=== PATIENT | female | born 1970 | race Caucasian/White ===

== ENCOUNTER 2017-11-04 10:12 | Inpatient (IN) | payer OTHER ==
[~2017-11-04] VITALS: Ht 154.9 cm; Wt 90.8 kg
[2017-11-04] MEDS ORDERED: LEVO100T5 PO (10:51)
[2017-11-04] MEDS ORDERED: SODIUM CHLORIDE FLUSH 10ML SYR IVF ONE (12:00)
[2017-11-04] MEDS ORDERED: CEFTRIAXONE PMX 1GM/50ML 50 ML IVPB ONE (12:00)
[2017-11-04] MEDS ORDERED: MORPHINE SULFATE 4 MG/ML, 1ML IVPush PRN (12:00)
[2017-11-04] MEDS ORDERED: VANCOMYCIN PER PHARMACY MC ONE (12:00)
[2017-11-04 12:03] LABS: BASOPHILS # (AUTO) 0.02 x10^3/uL (0-0.1); BASOPHILS % (AUTO) 0 % (0-1); EOSINOPHILS # (AUTO) 0.19 x10^3/uL (0-0.4); EOSINOPHILS % (AUTO) 2 % (1-7); LYMPHOCYTES # (AUTO) 1.72 x10^3/uL (1-3.4); LYMPHOCYTES % (AUTO) 19 % (22-44); MD NO; MEAN CORPUSCULAR HEMOGLOBIN 31.2 pg (27.0-34.8); MEAN CORPUSCULAR HGB CONC 34.5 g/dL (32.4-35.8); MEAN CORPUSCULAR VOLUME 90.4 fL (80-100); MEAN PLATELET VOLUME 7.5 fL (7.4-10.4); MONOCYTES % (AUTO) 9 % (2-9); NEUTROPHILS # (AUTO) 6.52 x10^3/uL (1.8-6.8); NEUTROPHILS % (AUTO) 70 % (42-75); PLATELET COUNT 339 x10^3/uL (130-400); RED BLOOD COUNT 4.99 x10^6/uL (3.82-5.3); RED CELL DISTRIBUTION WIDTH 13.6 % (9.6-15.2)
[2017-11-04] MEDS ORDERED: LEVO50TA5 PO (12:09)
[2017-11-04] MEDS ORDERED: SUMA100T3 PO (12:10)
[2017-11-04 12:15] LABS: ALANINE AMINOTRANSFERASE 26 U/L (12-78); ALBUMIN 4.5 g/dL (3.4-5.0); ANION GAP 7 mmol/L (5-15); CALCIUM 9.4 mg/dL (8.5-10.1); CHLORIDE 106 mmol/L (98-107)
[2017-11-04 12:17] LABS: ALKALINE PHOSPHATASE 84 U/L (45-117); BILIRUBIN,TOTAL 0.6 mg/dL (0.2-1.0); TOTAL PROTEIN 8.1 g/dL (6.4-8.2)
[2017-11-04] MEDS ORDERED: MORPHINE SULFATE 4 MG/ML, 1ML ONE (12:21)
[2017-11-04] MEDS ORDERED: CEFTRIAXONE 2 GM in DEXTROSE 5% 50 ML IV SCH (12:30)
[2017-11-04] MEDS ORDERED: LIDOCAINE 2%, 10ML INFIL ONE (12:30)
[2017-11-04] MEDS ORDERED: POLYETHYLENE GLYCOL 17 GM PACKET PO PRN (12:30)
[2017-11-04] MEDS ORDERED: VANCOMYCIN 1,300 MG in SODIUM CHLORIDE 0.9% 250 ML IV ONE (12:30)
[2017-11-04] MEDS ORDERED: VANCOMYCIN PER PHARMACY MC PRN (12:30)
[2017-11-04] MEDS ORDERED: LABETALOL 5MG/ML, 20ML IVPush PRN (12:30)
[2017-11-04] MEDS ORDERED: ONDANSETRON ODT 4 MG PO PRN (12:30)
[2017-11-04 12:41] LABS: INTERNATIONAL NORMALIZED RATIO 0.95 (0.93-1.1); PROTHROMBIN TIME 9.9 Seconds (9.6-11.5)
[2017-11-04] MEDS ORDERED: LIDOCAINE-MPF 1%, 5ML ONE (13:01)
[2017-11-04 14:14] VITALS: BP 127/76
[2017-11-04] MEDS ORDERED: OMNIPAQUE 350 MG/ML, 75ML BOTTLE ONE (14:22)
[2017-11-04] MEDS: METRONIDAZOLE PMX 500MG/100ML 100 ML IV SCH ×2 (15:03→21:01)
[2017-11-04] MEDS: SODIUM CHLORIDE 0.9% 1,000 ML IV SCH (15:06)
[2017-11-04] MEDS ORDERED: PHARMACOKINETIC MONITORING MC PRN (15:30)
[2017-11-04] MEDS: DEXAMETHASONE 4 MG/ML, 1ML IVPush SCH ×2 (16:41→21:01)
[2017-11-04] MEDS: CEFTRIAXONE 2 GM in DEXTROSE 5% 50 ML IV SCH (16:42)
[2017-11-04] MEDS: ENOXAPARIN 40 MG/0.4 ML SQ SCH (16:42)
[2017-11-04] MEDS ORDERED: PNEUMOCOCCAL 23 VACCINE IM-VACC ONE (18:30)
[2017-11-04] MEDS ORDERED: FLU VACC QS2017-18 (36MOS+) UP/PF 0.5 ML IM-VACC ONE (18:30)
[2017-11-04 19:23] VITALS: BP 99/59
[2017-11-04] MEDS: HYDROcodone/APAP 5/325 TABLET PO PRN (21:01)
[2017-11-05] MEDS ORDERED: VANCOMYCIN 1,600 MG in SODIUM CHLORIDE 0.9% 250 ML IV SCH
[2017-11-05] MEDS: SODIUM CHLORIDE 0.9% 1,000 ML IV SCH ×3 (01:23→15:07)
[2017-11-05 01:30] VITALS: BP 112/65
[2017-11-05] MEDS: METRONIDAZOLE PMX 500MG/100ML 100 ML IV SCH ×4 (03:09→20:55)
[2017-11-05 05:29] LABS: BASOPHILS % (AUTO) 0 % (0-1); EOSINOPHILS % (AUTO) 0 % (1-7); LYMPHOCYTES # (AUTO) 0.92 x10^3/uL (1-3.4); LYMPHOCYTES % (AUTO) 8 % (22-44); MD NO; MEAN CORPUSCULAR HEMOGLOBIN 30.9 pg (27.0-34.8); MEAN CORPUSCULAR HGB CONC 34.4 g/dL (32.4-35.8); MEAN CORPUSCULAR VOLUME 89.7 fL (80-100); MEAN PLATELET VOLUME 7.8 fL (7.4-10.4); MONOCYTES # (AUTO) 0.17 x10^3/uL (0.2-0.8); MONOCYTES % (AUTO) 2 % (2-9); NEUTROPHILS # (AUTO) 9.88 x10^3/uL (1.8-6.8); NEUTROPHILS % (AUTO) 90 % (42-75); PLATELET COUNT 305 x10^3/uL (130-400); RED BLOOD COUNT 4.44 x10^6/uL (3.82-5.3); RED CELL DISTRIBUTION WIDTH 13.2 % (9.6-15.2)
[2017-11-05 05:36] LABS: CHLORIDE 107 mmol/L (98-107)
[2017-11-05 05:43] LABS: ALANINE AMINOTRANSFERASE 23 U/L (12-78); ALBUMIN 3.4 g/dL (3.4-5.0); ALKALINE PHOSPHATASE 69 U/L (45-117); ANION GAP 8 mmol/L (5-15); BILIRUBIN,TOTAL 0.5 mg/dL (0.2-1.0); CALCIUM 8.6 mg/dL (8.5-10.1); CREATININE 0.57 mg/dL (0.55-1.02)
[2017-11-05 06:47] VITALS: BP 110/67
[2017-11-05] MEDS: HYDROcodone/APAP 5/325 TABLET PO PRN ×2 (08:39→20:55)
[2017-11-05] MEDS: SENNA/DOCUSATE TABLET PO SCH (09:00)
[2017-11-05] MEDS: LEVOTHYROXINE 50 MCG TABLET PO SCH (09:10)
[2017-11-05] MEDS: DEXAMETHASONE 4 MG/ML, 1ML IVPush SCH ×3 (09:10→20:55)
[2017-11-05] MEDS ORDERED: VANCOMYCIN 1,300 MG in SODIUM CHLORIDE 0.9% 250 ML IV SCH (12:00)
[2017-11-05] MEDS: VANCOMYCIN 1,600 MG in SODIUM CHLORIDE 0.9% 250 ML IV SCH (12:52)
[2017-11-05 13:03] VITALS: BP 121/70
[2017-11-05] MEDS: CEFTRIAXONE 2 GM in DEXTROSE 5% 50 ML IV SCH (16:14)
[2017-11-05] MEDS: ENOXAPARIN 40 MG/0.4 ML SQ SCH (16:16)
[2017-11-05 19:22] VITALS: BP 124/73
[2017-11-06] MEDS: VANCOMYCIN 1,600 MG in SODIUM CHLORIDE 0.9% 250 ML IV SCH ×2 (00:51→13:33)
[2017-11-06 01:43] VITALS: BP 109/58
[2017-11-06] MEDS: METRONIDAZOLE PMX 500MG/100ML 100 ML IV SCH ×4 (03:00→21:10)
[2017-11-06 04:55] LABS: MEAN CORPUSCULAR HEMOGLOBIN 30.6 pg (27.0-34.8); MEAN CORPUSCULAR HGB CONC 33.6 g/dL (32.4-35.8); MEAN CORPUSCULAR VOLUME 91.2 fL (80-100); MEAN PLATELET VOLUME 7.9 fL (7.4-10.4); PLATELET COUNT 315 x10^3/uL (130-400); RED BLOOD COUNT 4.27 x10^6/uL (3.82-5.3); RED CELL DISTRIBUTION WIDTH 13.9 % (9.6-15.2)
[2017-11-06 05:02] LABS: ALBUMIN 3.1 g/dL (3.4-5.0); ANION GAP 9 mmol/L (5-15); CALCIUM 8.1 mg/dL (8.5-10.1); CHLORIDE 112 mmol/L (98-107)
[2017-11-06 05:04] LABS: CREATININE 0.53 mg/dL (0.55-1.02)
[2017-11-06 05:38] LABS: MD YES
[2017-11-06 05:41] LABS: <PLATELET ESTIMATE> ADEQUATE; <PLT MORPHOLOGY> NORMAL PLT MORPH; <RBC MORPHOLOGY> NORMAL; BAND#(MANUAL) 0.54 x10^3/uL; BANDS%(MANUAL) 3 % (0-7); LYMPH#(MANUAL) 0.91 x10^3/uL (1-3.4); LYMPHS% (MANUAL) 5 % (22-44); METAMYELOCYTES# (MANUAL) 0.18 x10^3/uL (0-0); METAMYELOCYTES% (MANUAL) 1 % (0-1); MONOS#(MANUAL) 1.27 x10^3/uL (0.3-2.7); MONOS% (MANUAL) 7 % (2-9); SEGS% (MANUAL) 84 % (42-75)
[2017-11-06 06:28] VITALS: BP 128/69
[2017-11-06] MEDS: SENNA/DOCUSATE TABLET PO SCH (09:00)
[2017-11-06] MEDS: LEVOTHYROXINE 50 MCG TABLET PO SCH (09:04)
[2017-11-06] MEDS: DEXAMETHASONE 4 MG/ML, 1ML IVPush SCH ×3 (09:04→21:10)
[2017-11-06] MEDS: SODIUM CHLORIDE 0.9% 1,000 ML IV SCH (09:04)
[2017-11-06 12:49] VITALS: BP 105/62
[2017-11-06] MEDS: HYDROcodone/APAP 5/325 TABLET PO PRN (13:42)
[2017-11-06] MEDS: CEFTRIAXONE 2 GM in DEXTROSE 5% 50 ML IV SCH (17:07)
[2017-11-06] MEDS: ENOXAPARIN 40 MG/0.4 ML SQ SCH (17:07)
[2017-11-06 19:33] VITALS: BP 104/58
[2017-11-07] MEDS: HYDROcodone/APAP 5/325 TABLET PO PRN ×2 (00:39→08:19)
[2017-11-07] MEDS: VANCOMYCIN 1,600 MG in SODIUM CHLORIDE 0.9% 250 ML IV SCH ×2 (01:03→13:00)
[2017-11-07 01:51] VITALS: BP 117/65
[2017-11-07] MEDS: METRONIDAZOLE PMX 500MG/100ML 100 ML IV SCH ×4 (03:17→21:09)
[2017-11-07] MEDS: LEVOTHYROXINE 50 MCG TABLET PO SCH (08:19)
[2017-11-07] MEDS: SENNA/DOCUSATE TABLET PO SCH (08:20)
[2017-11-07] MEDS: DEXAMETHASONE 4 MG/ML, 1ML IVPush SCH (08:20)
[2017-11-07 08:30] VITALS: BP 107/81
[2017-11-07 14:30] VITALS: BP 137/75
[2017-11-07] MEDS ORDERED: CEFAZOLIN 2,000 MG in DEXTROSE 5% 50 ML IVPB SCH (14:30)
[2017-11-07] MEDS ORDERED: CEFAZOLIN PMX 2GM/50ML 50 ML IVPB SCH (14:30)
[2017-11-07] MEDS: ENOXAPARIN 40 MG/0.4 ML SQ SCH (16:30)
[2017-11-07] MEDS: DEXAMETHASONE 4 MG TABLET PO SCH (17:00)
[2017-11-07 18:56] VITALS: BP 105/63
[2017-11-07] MEDS: CEFAZOLIN 2,000 MG in DEXTROSE 5% 50 ML IVPB SCH (22:39)
[2017-11-08] MEDS: ONDANSETRON 2MG/ML, 2ML IVPush PRN (01:28)
[2017-11-08 01:47] VITALS: BP 115/67
[2017-11-08] MEDS: METRONIDAZOLE PMX 500MG/100ML 100 ML IV SCH ×4 (03:01→22:53)
[2017-11-08 06:01] LABS: BASOPHILS # (AUTO) 0.01 x10^3/uL (0-0.1); BASOPHILS % (AUTO) 0 % (0-1); EOSINOPHILS # (AUTO) 0.01 x10^3/uL (0-0.4); EOSINOPHILS % (AUTO) 0 % (1-7); LYMPHOCYTES # (AUTO) 2.16 x10^3/uL (1-3.4); LYMPHOCYTES % (AUTO) 21 % (22-44); MD NO; MEAN CORPUSCULAR HEMOGLOBIN 31.2 pg (27.0-34.8); MEAN CORPUSCULAR HGB CONC 34.2 g/dL (32.4-35.8); MEAN CORPUSCULAR VOLUME 91.3 fL (80-100); MONOCYTES % (AUTO) 8 % (2-9); NEUTROPHILS # (AUTO) 7.39 x10^3/uL (1.8-6.8); NEUTROPHILS % (AUTO) 71 % (42-75); PLATELET COUNT 312 x10^3/uL (130-400); RED BLOOD COUNT 4.26 x10^6/uL (3.82-5.3)
[2017-11-08 06:08] LABS: ALBUMIN 2.8 g/dL (3.4-5.0); ANION GAP 6 mmol/L (5-15); CHLORIDE 110 mmol/L (98-107); CREATININE 0.55 mg/dL (0.55-1.02)
[2017-11-08] MEDS: CEFAZOLIN 2,000 MG in DEXTROSE 5% 50 ML IVPB SCH ×2 (06:24→17:06)
[2017-11-08 08:30] VITALS: BP 102/59
[2017-11-08] MEDS: DEXAMETHASONE 4 MG TABLET PO SCH ×2 (08:38→17:07)
[2017-11-08] MEDS: SENNA/DOCUSATE TABLET PO SCH (08:38)
[2017-11-08] MEDS: LEVOTHYROXINE 50 MCG TABLET PO SCH (08:38)
[2017-11-08] MEDS: HYDROcodone/APAP 5/325 TABLET PO PRN ×2 (13:39→22:53)
[2017-11-08 15:02] VITALS: BP 111/62
[2017-11-08] MEDS: ENOXAPARIN 40 MG/0.4 ML SQ SCH (17:07)
[2017-11-08 19:39] VITALS: BP 94/53
[2017-11-09 00:43] VITALS: BP 103/66
[2017-11-09] MEDS: CEFAZOLIN 2,000 MG in DEXTROSE 5% 50 ML IVPB SCH ×3 (01:03→19:04)
[2017-11-09] MEDS: ONDANSETRON 2MG/ML, 2ML IVPush PRN (01:03)
[2017-11-09] MEDS: METRONIDAZOLE PMX 500MG/100ML 100 ML IV SCH ×4 (05:07→23:30)
[2017-11-09] MEDS: DEXAMETHASONE 4 MG TABLET PO SCH ×2 (07:58→17:14)
[2017-11-09 08:03] VITALS: BP 123/70
[2017-11-09] MEDS: SENNA/DOCUSATE TABLET PO SCH (09:00)
[2017-11-09] MEDS: LEVOTHYROXINE 50 MCG TABLET PO SCH (10:00)
[2017-11-09 14:30] VITALS: BP 103/58
[2017-11-09] MEDS: ENOXAPARIN 40 MG/0.4 ML SQ SCH (17:14)
[2017-11-09 18:38] VITALS: BP 104/64
[2017-11-10 01:45] VITALS: BP 116/68
[2017-11-10] MEDS: CEFAZOLIN 2,000 MG in DEXTROSE 5% 50 ML IVPB SCH (01:57)
[2017-11-10] MEDS: METRONIDAZOLE PMX 500MG/100ML 100 ML IV SCH (05:31)
[2017-11-10 05:36] LABS: MEAN CORPUSCULAR HEMOGLOBIN 31.3 pg (27.0-34.8); MEAN CORPUSCULAR HGB CONC 34.1 g/dL (32.4-35.8); MEAN CORPUSCULAR VOLUME 91.7 fL (80-100); MEAN PLATELET VOLUME 8.2 fL (7.4-10.4); PLATELET COUNT 328 x10^3/uL (130-400); RED BLOOD COUNT 4.27 x10^6/uL (3.82-5.3); RED CELL DISTRIBUTION WIDTH 14.4 % (9.6-15.2)
[2017-11-10 05:40] LABS: ALBUMIN 2.8 g/dL (3.4-5.0); ANION GAP 9 mmol/L (5-15); CALCIUM 7.9 mg/dL (8.5-10.1); CHLORIDE 106 mmol/L (98-107); CREATININE 0.57 mg/dL (0.55-1.02)
[2017-11-10 06:16] LABS: MD YES
[2017-11-10 06:17] LABS: BAND#(MANUAL) 0.11 x10^3/uL; BANDS%(MANUAL) 1 % (0-7); METAMYELOCYTES# (MANUAL) 0.23 x10^3/uL (0-0); METAMYELOCYTES% (MANUAL) 2 % (0-1); MONOS#(MANUAL) 1.13 x10^3/uL (0.3-2.7); MONOS% (MANUAL) 10 % (2-9); MYELOCYTES# (MANUAL) 0.11 x10^3/uL (0-0); MYELOCYTES% (MANUAL) 1 % (0-0)
[2017-11-10 06:18] LABS: LYMPH#(MANUAL) 2.37 x10^3/uL (1-3.4); LYMPHS% (MANUAL) 21 % (22-44); SEG#(MANUAL) 7.35 x10^3/uL (1.8-6.8); SEGS% (MANUAL) 65 % (42-75)
[2017-11-10 06:19] LABS: <PLATELET ESTIMATE> ADEQUATE; <PLT MORPHOLOGY> NORMAL PLT MORPH; POLYCHROMASIA 1+
[2017-11-10 06:21] LABS: BASOPHILS # (AUTO) 0.03 x10^3/uL (0-0.1); BASOPHILS % (AUTO) 0 % (0-1); EOSINOPHILS # (AUTO) 0.02 x10^3/uL (0-0.4); EOSINOPHILS % (AUTO) 0 % (1-7); LYMPHOCYTES # (AUTO) 2.26 x10^3/uL (1-3.4); LYMPHOCYTES % (AUTO) 20 % (22-44); MONOCYTES # (AUTO) 0.93 x10^3/uL (0.2-0.8); MONOCYTES % (AUTO) 8 % (2-9); NEUTROPHILS # (AUTO) 8.03 x10^3/uL (1.8-6.8); NEUTROPHILS % (AUTO) 71 % (42-75)
[2017-11-10 07:10] VITALS: BP 136/83
[2017-11-10] MEDS: SENNA/DOCUSATE TABLET PO SCH (07:54)
[2017-11-10] MEDS: LEVOTHYROXINE 50 MCG TABLET PO SCH (07:54)
[2017-11-10] MEDS: DEXAMETHASONE 4 MG TABLET PO SCH (07:54)
[2017-11-10] MEDS ORDERED: CEPH-368 PO (08:06)
[2017-11-10] MEDS ORDERED: PRED10TA PO (08:08)
[2017-11-10] MEDS ORDERED: CEFTRIAXONE PMX 2GM/50ML 50 ML IV SCH (08:30)
[2017-11-10] MEDS ORDERED: DEXAMETHASONE 4 MG TABLET PO SCH (09:00)
== END 2017-11-10 11:24 | disposition home or self-care (01) | DRG 602 ==
LOC: ED 11:40 → EDIP 11:41 → ED 12:26 → 3NE 14:23
PROVIDERS: ADMIT Internal Medicine; ATTEND Internal Medicine
PROC: 0H91XZZ Drainage of Face Skin, External Approach (ICD-10-PCS; principal; 2017-11-04)
DX: L03.213 Periorbital cellulitis (principal); E43 Unspecified severe protein-calorie malnutrition; E87.2 Acidosis; B95.61 Methicillin susceptible Staphylococcus aureus infection as the cause of diseases classified elsewhere; E03.9 Hypothyroidism, unspecified; Z90.710 Acquired absence of both cervix and uterus; G43.909 Migraine, unspecified, not intractable, without status migrainosus; Z68.37 Body mass index [BMI] 37.0-37.9, adult
CPT/HCPCS: 10060; 36415; 70481; 80048; 80053; 80202; 82040; 83605; 83735; 84100; 84439; 85025; 85610; 87040; 87070; 87077; 87186; 87205; 90686; 90732; 96374; J0690; J0696; J1100; J1650; J2405; J3370; Q9967; J7030; J7050